=== PATIENT | female | born 1970 | race Caucasian/White ===

== ENCOUNTER 2020-07-24 10:38 | Outpatient (REF) | payer MEDICARE, MEDICAID, SELFPAY ==
[2020-07-24 11:27] LABS: MANUAL DIFF FLAG NO
[2020-07-24 11:29] LABS: Basophils Percent Auto 0.4 % (0-2); Imm Gran Abs Auto 0.03 X10*3/uL (0.00-0.03); Imm Gran Pct Auto 0.4 % (0.0-0.4); Lymphocytes Absolute Auto 2.5 X10*3/uL (1.2-4.9); Lymphocytes Percent Auto 30.5 % (20-40); Mean Corpuscular HGB Conc 31.8 g/dl (31.0-35.0); Mean Corpuscular Hemoglobin 30.2 pg (27.0-33.0); Mean Corpuscular Volume 94.8 fL (80-98); Mean Platelet Volume 9.2 fL (9.4-12.3); Monocytes Absolute Auto 0.6 X10*3/uL (0.1-1.2); Monocytes Percent Auto 6.7 % (2-11); Neutrophils Absolute Auto 5.1 X10*3/uL (2.0-8.3); Platelet Count 280 X10*3/uL (160-400); Red Blood Count 4.64 X10*6/uL (4.20-5.50); White Blood Count 8.2 X10*3/uL (4.8-10.8)
[2020-07-24 11:32] LABS: Glucose Urine UA NEG (NEG); Leukocyte Esterase Urine 1+ (NEG); Nitrite Urine NEG (NEG); PH 8.5 (5.0-8.0); Specific Gravity - Urine 1.015 (1.005-1.025); Urine Blood NEG (NEG); Urine Ketones NEG (NEG); Urine Protein NEG (NEG-TRACE)
[2020-07-24 11:38] LABS: Estimated Average Glucose 117 mg/dL; Hemoglobin A1c % 5.7 %
[2020-07-24 11:39] LABS: Appearance Urine HAZY; Color Urine YELLOW
[2020-07-24 12:10] LABS: Alanine Aminotransferase 15 U/L (0-31); Albumin Level 4.2 g/dL (3.5-5.0); Alkaline Phosphatase 162 U/L (39-117); Anion Gap 15 (12-20); Aspartate Amino Transferase 17 U/L (5-31); Bilirubin Total 0.3 mg/dL (0.0-1.0); Blood Urea Nitrogen 14 mg/dL (9-16); Calcium 9.2 mg/dL (8.4-10.2); Carbon Dioxide 30 mmol/L (22-29); Chloride 102 mmol/L (96-108); Cholesterol 163 mg/dL; Estimated Glomerular Filt Rate > 60; Glucose Random 110 mg/dL (60-115); HDL Cholesterol 50 mg/dL; LDL Cholesterol Calculated 92 mg/dl; Potassium 4.3 mmol/L (3.3-5.1); Sodium 143 mmol/L (135-145); Total Protein 7.7 g/dL (6.5-8.0); Triglycerides 109 mg/dL
[2020-07-24 12:12] LABS: Mucus Urine 1+ /LPF; RBC Urine 0-2 /HPF (0); Squamous Epithelial Cell Urine 2+ /LPF
[2020-07-24 12:13] LABS: Calcium Oxalate Crystals Urine TRACE /LPF
[2020-07-24 12:17] LABS: Free T4 (Free Thyroxine) 0.93 ng/dL (0.71-1.85); Thyroid Stimulating Hormone 1.11 uIU/mL (0.32-4.0); Vitamin D 25-OH Total 35.3 ng/mL (>30)
[2020-07-24 12:33] LABS: Folate > 20.0 ng/mL (> or = 4.0); Vitamin B12 806 pg/mL (200-900)
[2020-07-24 12:39] LABS: Carbamazepine Tegretol 9.7 mcg/mL (5.0-12.0)
== END 2020-07-24 10:39 | disposition home or self-care (01) ==
LOC: HO.LAB 10:38
PROVIDERS: PCP Internal Medicine; Visit Provider Internal Medicine
DX: E78.00 Pure hypercholesterolemia, unspecified (principal); R73.02 Impaired glucose tolerance (oral); I10 Essential (primary) hypertension; Z87.898 Personal history of other specified conditions
CPT/HCPCS: 36415; 80053; 80061; 80156; 81001; 82306; 82607; 82746; 83036; 84439; 84443; 85025

== ENCOUNTER 2022-12-08 14:58 | Outpatient (AMB) | payer MEDICARE, MEDICAID, SELFPAY ==
[2022-12-08 15:14] VITALS: BP 124/70; PULSE 74; O2SAT 98; BMI 35.9
--- NOTE | 2022-12-08 15:14 | A.OFFVIS_ITS ---
Intake Vital Signs 12/08/22 15:14 Height 5 ft 5 in Weight 216 lb BMI 35.9 BP 124/70 Blood Pressure Location Lt brachial Position Sitting Pulse 74 Pulse Source Pulse Oximeter Pulse Oximetry (%) 98 Oxygen Delivery Method Room Air Intake Visit Reasons: SAWV G0439 Allergies No Known Allergies Allergy (Verified 12/08/22 15:14) Medication List - Last Reconciled 12/08/22 by Jessee Escobar MD acetaminophen (Tylenol) 650 mg (2 x 325 mg) PO Q4H PRN atorvastatin 60 mg (1.5 x 40 mg) PO BEDTIME 90 days carbamazepine 400 mg PO BID clonazepam 1 mg PO QAM diazepam 2 mg PO DAILY PRN docusate sodium (Colace) 100 mg PO BID hydrochlorothiazide 25 mg PO DAILY levetiracetam 2,000 mg PO BID loratadine (Claritin) 10 mg PO DAILY miconazole nitrate 2% (Zeasorb AF) 1 appl topical DAILY multivitamin 1 tab PO DAILY multivitamin with folic acid 400 mcg (Tab-A-Elieser) 1 tab PO QAM norethindrone (contraceptive) 0.35 mg PO QAM omega-3 fatty acids-fish oil 340-1,000 mg 1 cap PO BID omeprazole 20 mg PO QAM propranolol ER mg PO TID risperidone 2 mg PO DAILY risperidone 1 mg PO BID silver sulfadiazine 1% (Silvadene) 1 appl topical DAILY venlafaxine ER 75 mg PO DAILY venlafaxine ER (Effexor XR) 150 mg PO QAM HPI SAWV G0439 HPI Details 52-year-old obese female with a history of developmental delay, depression psychosis with sign and snf. Review of the notes in July had a fall patient has tripped sustaining head trauma no loss of consciousness had a large left occipital hematoma. Patient has a history of hypertension, hypercholesterolemia GERD and impaired glucose tolerance. Patient has a history of seizures also. [facility] Medical History (Updated 12/08/22 @ 15:54 by Jessee Escobar MD) Depression GERD (gastroesophageal reflux disease) History of seizures Hypercholesterolemia Hypertension Impaired glucose tolerance Mental and behavioral problem Obesity (BMI 30-39.9) Schizophrenia Surgical History History of tooth extraction Family History Father Medical history unknown Mother Cancer Sister Diabetes Brother Diabetes Social History Alcohol intake: never Patient Tobacco Use Status: Never used Tobacco Questionnaire Medicare Wellness Checkup What is your age?: 65-69 (18-64) What gender do you identify with?: female During the past 4 weeks, how much have you been bothered by emotional problems such as feeling anxious, depressed, irritable, sad or downhearted, and blue?: not at all During the past 4 weeks, has your physical & emotional health limited your social activities with family, friends, neighbors, or groups?: not at all During the past 4 weeks, how much bodily pain have you generally had?: no pain During the past 4 weeks, was someone available to help you if you needed & wanted help?: yes, as much as I wanted During the past 4 weeks, what was the hardest physical activity you could do for at least 2 minutes?: very light (no physical activity) Can you get to places out of walking distance without help? (For eg., can you travel alone on buses, taxis or drive your car?): Yes Can you go shopping for groceries or clothes without someone's help?: No Can you prepare your own meals?: No Can you do your housework without help?: No Because of any health problems, do you need the help of another person with your personal care needs such as eating, bathing, dressing or getting around the house?: Yes Can you handle your own money without help?: No During the past 4 weeks, how would you rate your health in general?: good During the past 4 weeks how have things been going for you?: pretty well Are you having difficulties driving your car?: not applicable, I don't use a car Do you always fasten your seat belt when you are in a car?: yes, usually During past 4 weeks, have you been bothered by the following: never: Falling or dizzy when standing up, Sexual problems?, Trouble eating well?, Teeth or denture problems?, Problems using the telephone? and Tiredness or fatigue? Have you fallen 2 or more times in the past year?: Yes Are you afraid of falling?: No Are you a smoker?: no During the past 4 weeks, how many drinks of wine, beer, or other alcoholic beverages did you have?: no alcohol at all Do you exercise for about 20 minutes 3 or more times a week?: no, I usually do not exercise this much Have you been given information to help with the following?: yes: Hazards in your house that might hurt you? and yes: Keeping track of your medications? How often do you have trouble taking medicines the way you have been told to take them?: I always take medicine as prescribed What is your race?: White PHQ-9 Over the last 2 weeks, how often have you been bothered by any of the following problems? 1. Little interest or pleasure in doing things: more than half the days 2. Feeling down, depressed, or hopeless: not at all 3. Trouble falling or staying asleep, or sleeping too much: not at all 4. Feeling tired or having little energy: not at all 5. Poor appetite or overeating: not at all 6. Feeling bad about yourself - or that you are a failure or have let yourself or your family down: not at all 7. Trouble concentrating on things, such as reading the newspaper or watching television: not at all 8. Moving or speaking so slowly that other people could have noticed. Or the opposite - being so fidgety or restless that you have been moving around a lot more than usual: not at all 9. Thoughts that you would be better off or of hurting yourself in some way: not at all Total score: 2 Depression Screening Interpretation: Negative Source: Developed by Drs. Victor Manuel Helton, Latoya Ryan, Skip Awad and colleagues, with an educational simon from [employer]. Review of Systems Const Denies poor appetite and Denies weakness Eyes Denies no additional complaints ENT Reports Normal hearing present, Denies dizziness, Denies nasal congestion, Denies tinnitus and Denies sore throat Card Denies chest pain, Denies syncope, Denies rapid heart rate and Denies dyspnea Resp Denies cough and Denies dyspnea GI Denies change in stool character, Reports constipation, Denies diarrhea, Denies nausea and Denies vomiting Denies urinary frequency, Denies difficulty voiding and Denies dysuria Neuro Reports Normal hearing present, Denies confusion, Denies dizziness, Denies syncope and Denies weakness Psych Denies confusion Physical Exam Vital Signs: Last Vital Signs Pulse 74 12/08/22 15:14 BP 124/70 12/08/22 15:14 Pulse Ox 98 12/08/22 15:14 Oxygen Delivery Method Room Air 12/08/22 15:14 BMI result Body Mass Index 35.9 Const General: No confusion Orientation/consciousness: No confusion HEENT Head: Yes normocephalic Ears: external ears normal and TM's normal bilaterally Face and sinus: Yes normal facial exam Mouth: moist mucous membranes Throat: Yes tonsils normal Eyes Conjunctivae: conjunctivae normal Pupils: Equal, round and reactive pupils present and Pupil accommodation reflex normal Direct Ophthalmoscopy: normal light reflex Neck Neck: No lymphadenopathy Thyroid: Thyroid normal Chest Chest palpation & inspection: normal inspection of the chest Resp Effort & Inspection: normal respiratory effort and no audible wheezes Auscultation: clear to auscultation bilaterally, no crackles, no wheezes and lung sounds not diminished Cardio Rate: regular rate Rhythm: regular rhythm Peripheral pulses: radial pulses present and dorsalis pedis present GI Palpation (GI): no masses Auscultation: normal bowel sounds and normoactive bowel sounds Rectal Exam - Female: deferred Skin General skin exam: no rashes or lesions noted Rashes: no rashes Neuro General: No confusion Cranial nerves: Yes Equal, round and reactive pupils present and Yes Normal hearing present Cognition (Neuro): normal cognition Gait exam (Neuro): Normal gait present Motor exam (neuro): 5/5 motor strength present throughout Deep tendon reflexes (DTR's): Right brachioradialis reflex intensity grade: 2+, Left brachioradialis reflex intensity grade: 2+, Right patellar reflex intensity grade: 2+ and Left patellar reflex intensity grade: 2+ Extrem General: No edema Assessment & Plan Assessment & Plan (1) Medicare annual wellness visit, subsequent: Code(s): Z00.00 - Encounter for general adult medical examination without abnormal findings Plan: Discussed about blood work, preventive measures vaccinations discussed about the problem with blood sugar and cholesterol discussed about the weight. (2) History of seizures: Comment: Dr. hammond Code(s): Z87.898 - Personal history of other specified conditions Plan: Continue with follow-up with Neurology and medications (3) Impaired glucose tolerance: Code(s): R73.02 - Impaired glucose tolerance (oral) Plan: Decrease the amount of carbohydrate intake, pasta, bread, rice and potatoes are all sugar and that is aside from all the sweet stuff, remember that fruits are good but they are Sweet also. (4) Schizophrenia: Code(s): F20.9 - Schizophrenia, unspecified Plan: Continue with counseling and therapy (5) GERD (gastroesophageal reflux disease): Code(s): K21.9 - Gastro-esophageal reflux disease without esophagitis Qualifiers: Esophagitis presence: without esophagitis Qualified Code(s): K21.9 - Gastro-esophageal reflux disease without esophagitis Plan: Avoid the foods that causes that usually spicy foods, tomato products, juices, coffee, soda and foods that your sensitive to. After eating do not lie down, allow 3-4 hours before in lie down. And keep the head of bed above 30 degrees to avoid the acid from going up. (6) Obesity (BMI 30-39.9): Code(s): E66.9 - Obesity, unspecified Plan: Diet and exercise (7) Hypercholesterolemia: Code(s): E78.00 - Pure hypercholesterolemia, unspecified Plan: Avoid fried foods, chicken skin, eggs, butter margarine, pastries and meat. Be it pork or beef they have a lot of cholesterol LDL goal of less than 130 and triglyceride of less than 150 patient is advised blood work patient is on atorvastatin 60 mg once a day (8) Hypertension: Code(s): I10 - Essential (primary) hypertension Qualifiers: Hypertension type: essential hypertension Qualified Code(s): I10 - Essential (primary) hypertension Plan: Continue with blood pressure medication. Decrease salt intake and exercise patient is on hydrochlorothiazide 25 mg once a day propranolol 3 times a day (9) Colon cancer screening: Code(s): Z12.11 - Encounter for screening for malignant neoplasm of colon Plan: Coltiffanie requested (10) Breast cancer screening: Code(s): Z12.39 - Encounter for other screening for malignant neoplasm of breast Plan: Reminded about the mammogram Orders: Orders Vitamin B12 and Folate Today R73.02 - Impaired glucose tolerance (oral) Comprehensive Met. Panel Today R73.02 - Impaired glucose tolerance (oral) Hemoglobin A1c Today R73.02 - Impaired glucose tolerance (oral) Lipid Panel Today E78.00 - Pure hypercholesterolemia, unspecified, R73.02 - Impaired glucose tolerance (oral) Free T4 (Free Thyroxine) Today R73.02 - Impaired glucose tolerance (oral) Thyroid Stimulating Hormone Today R73.02 - Impaired glucose tolerance (oral) Vitamin D 25-OH Total Today R73.02 - Impaired glucose tolerance (oral) Complete Blood Count Auto Diff Today R73.02 - Impaired glucose tolerance (oral) Carbamazepine Tegretol Today Z87.898 - Personal history of other specified conditions Referrals Cologuard Test Z12.11 - Encounter for screening for malignant neoplasm of colon Quality Reporting (2019) Depression/Bipolar (159/160/161/177) PHQ-9: Total score: 2 Coding Level of Care Code Medicare Subsequent (G0439) Diagnoses Medicare annual wellness visit, subsequent Z00.00 History of seizures Z87.898 Impaired glucose tolerance R73.02 Schizophrenia F20.9 GERD (gastroesophageal reflux disease) K21.9 Esophagitis presence: without esophagitis Obesity (BMI 30-39.9) E66.9 Hypercholesterolemia E78.00 Hypertension I10 Hypertension type: essential hypertension Colon cancer screening Z12.11 Breast cancer screening Z12.39
== END 2022-12-08 15:57 | disposition home or self-care (01) ==
PROVIDERS: Visit Provider Internal Medicine
DX: Z00.00 Encounter for general adult medical examination without abnormal findings (principal); Z87.898 Personal history of other specified conditions; F20.9 Schizophrenia, unspecified; I10 Essential (primary) hypertension; K21.9 Gastro-esophageal reflux disease without esophagitis; R73.02 Impaired glucose tolerance (oral); E66.9 Obesity, unspecified; E78.00 Pure hypercholesterolemia, unspecified; Z12.11 Encounter for screening for malignant neoplasm of colon; Z12.39 Encounter for other screening for malignant neoplasm of breast
CPT/HCPCS: G0439

== ENCOUNTER 2022-12-12 09:40 | Outpatient (REF) | payer MEDICARE, MEDICAID, SELFPAY ==
[2022-12-12 10:03] LABS: MANUAL DIFF FLAG NO
[2022-12-12 10:32] LABS: Basophils Percent Auto 0.3 % (0-2); Hematocrit 42.6 % (37.0-47.0); Imm Gran Abs Auto 0.03 X10*3/uL (0.00-0.03); Imm Gran Pct Auto 0.3 % (0.0-0.4); Lymphocytes Percent Auto 32.6 % (20-40); Mean Corpuscular HGB Conc 32.9 g/dl (31.0-35.0); Mean Corpuscular Hemoglobin 30.4 pg (27.0-33.0); Mean Corpuscular Volume 92.6 fL (80.0-98.0); Mean Platelet Volume 9.2 fL (9.4-12.3); Monocytes Absolute Auto 0.6 X10*3/uL (0.1-1.2); Monocytes Percent Auto 6.6 % (2-11); Neutrophils Absolute Auto 5.5 x10*3/uL (2.0-8.3); Neutrophils Percent Auto 60.2 % (45-73); Platelet Count 292 X10*3/uL (160-400); White Blood Count 9.1 X10*3/uL (4.8-10.8)
[2022-12-12 11:25] LABS: Estimated Average Glucose 137 mg/dL; Hemoglobin A1c % 6.4 %
[2022-12-12 11:43] LABS: Carbamazepine Tegretol 14.8 mcg/mL (5.0-12.0)
[2022-12-12 11:49] LABS: Alanine Aminotransferase 23 U/L (0-31); Albumin Level 3.9 g/dL (3.5-5.0); Alkaline Phosphatase 152 U/L (39-117); Anion Gap 16 (12-20); Aspartate Amino Transferase 20 U/L (5-31); Bilirubin Total 0.3 mg/dL (0.0-1.0); Blood Urea Nitrogen 12 mg/dL (9-16); Calcium 9.7 mg/dL (8.4-10.2); Carbon Dioxide 27 mmol/L (22-29); Chloride 103 mmol/L (96-108); Cholesterol 160 mg/dL; Estimated Glomerular Filt Rate > 60; Glucose Random 164 mg/dL (60-115); HDL Cholesterol 46 mg/dL; LDL Cholesterol Calculated 90 mg/dl; Potassium 3.5 mmol/L (3.3-5.1); Sodium 142 mmol/L (135-145); Total Protein 7.8 g/dL (6.5-8.0); Triglycerides 124 mg/dL
[2022-12-12 11:55] LABS: Free T4 (Free Thyroxine) 0.83 ng/dL (0.71-1.85); Thyroid Stimulating Hormone 1.65 uIU/mL (0.32-4.0); Vitamin D 25-OH Total 38.3 ng/mL (>30)
[2022-12-12 12:11] LABS: Vitamin B12 863 pg/mL (200-900)
== END 2022-12-12 09:41 | disposition home or self-care (01) ==
LOC: HO.LAB 09:40
PROVIDERS: PCP Internal Medicine; Visit Provider Internal Medicine
DX: E78.00 Pure hypercholesterolemia, unspecified (principal); R73.02 Impaired glucose tolerance (oral); Z87.898 Personal history of other specified conditions; E55.9 Vitamin D deficiency, unspecified
CPT/HCPCS: 36415; 80053; 80061; 80156; 82306; 82607; 82746; 83036; 84439; 84443; 85025

== ENCOUNTER 2024-01-15 17:22 | Outpatient (AMB) | payer MEDICARE, MEDICAID, SELFPAY ==
--- NOTE | 2024-01-15 17:44 | A.OFFVIS_ITS ---
Intake Vital Signs 01/15/24 17:45 Height 5 ft 5 in Weight 209 lb 2 oz BMI 34.8 BP 92/68 Blood Pressure Location Lt brachial Position Sitting Pulse 63 Pulse Source Pulse Oximeter Pulse Oximetry (%) 97 Oxygen Delivery Method Room Air Intake Visit Reasons: AWV Intake Note: Patient is here for an Annual Wellness Visit. English Faculty Member Required: No Accompanied by: staff Allergies No Known Allergies Allergy (Verified 12/08/22 15:14) HPI AWV HPI Details 53-year-old obese female(noted 7 lb weig ht loss) with schizophrenia impaired glucose tolerance has of seizures GERD hypercholesterolemia hypertension coming in for annual well visit last seen in last year. Patient has declined mammogram and Cologuard testing. Review of the notes 04/19/2023 ER visit for seizures. Review of the notes in 02/17/2023 had an EEG done showing limited results due to patient's removal of electrodes. Abnormal potentially epileptogenic activity left frontotemporal and right frontal regions. Mild to moderate generalized slowing results showing neurology notes seen in January presumably complex partial PFSH Medical History (Updated 01/15/24 @ 18:14 by Jessee Escobar MD) Impaired glucose tolerance Depression Mental and behavioral problem GERD (gastroesophageal reflux disease) Obesity (BMI 30-39.9) Schizophrenia History of seizures Hypercholesterolemia Hypertension Surgical History History of tooth extraction Family History Father Medical history unknown Mother Cancer Sister Diabetes Brother Diabetes Social History Alcohol intake: never Patient Tobacco Use Status: Never used Tobacco Questionnaire Medicare Wellness Checkup What [age] your [age]?: 65-69 What gender do you identify with?: female During the past 4 weeks, how much have you been bothered by emotional problems such as feeling anxious, depressed, irritable, sad or downhearted, and blue?: not at all During the past 4 weeks, has your physical & emotional health limited your social activities with family, friends, neighbors, or groups?: quite a bit During the past 4 weeks, how much bodily pain have you generally had?: no pain During the past 4 weeks, was someone available to help you if you needed & wanted help?: yes, as much as I wanted During the past 4 weeks, what was the hardest physical activity you could do for at least 2 minutes?: moderate Can you get to places out of walking distance without help? (For eg., can you travel alone on buses, taxis or drive your car?): No Can you go shopping for groceries or clothes without someone's help?: No Can you prepare your own meals?: No Can you do your housework without help?: No Because of any health problems, do you need the help of another person with your personal care needs such as eating, bathing, dressing or getting around the house?: Yes Can you handle your own money without help?: No During the past 4 weeks, how would you rate your health in general?: good During the past 4 weeks how have things been going for you?: pretty well Are you having difficulties driving your car?: not applicable, I don't use a car Do you always fasten your seat belt when you are in a car?: yes, usually During past 4 weeks, have you been bothered by the following: never: Sexual problems?, Trouble eating well?, Teeth or denture problems? and Problems using the telephone?, sometimes: Falling or dizzy when standing up and often: Tiredness or fatigue? Have you fallen 2 or more times in the past year?: No Are you afraid of falling?: No Are you a smoker?: no During the past 4 weeks, how many drinks of wine, beer, or other alcoholic beverages did you have?: no alcohol at all Do you exercise for about 20 minutes 3 or more times a week?: no, I usually do not exercise this much Have you been given information to help with the following?: yes: Hazards in your house that might hurt you? and yes: Keeping track of your medications? How often do you have trouble taking medicines the way you have been told to take them?: I always take medicine as prescribed How confident are you that you can control & manage most of your health problems?: not very confident What is your race?: White PHQ-9 Over the last 2 weeks, how often have you been bothered by any of the following problems? 1. Little interest or pleasure in doing things: more than half the days 2. Feeling down, depressed, or hopeless: several days 3. Trouble falling or staying asleep, or sleeping too much: more than half the days 4. Feeling tired or having little energy: more than half the days 5. Poor appetite or overeating: not at all 6. Feeling bad about yourself - or that you are a failure or have let yourself or your family down: not at all 7. Trouble concentrating on things, such as reading the newspaper or watching television: several days 8. Moving or speaking so slowly that other people could have noticed. Or the opposite - being so fidgety or restless that you have been moving around a lot more than usual: several days 9. Thoughts that you would be better off or of hurting yourself in some way: not at all Total score: 9 Depression Screening Interpretation: Positive Depression Screening Done: Yes Source: Developed by Drs. Victor Manuel Helton, Latoya Ryan, Skip Awad and colleagues, with an educational simon from [employer]. Review of Systems Const Denies poor appetite and Denies weakness Eyes Denies no additional complaints ENT Denies dizziness, Denies nasal congestion, Denies tinnitus and Denies sore throat Card Denies chest pain, Denies syncope, Denies rapid heart rate and Denies dyspnea Resp Denies cough and Denies dyspnea GI Denies change in stool character, Reports constipation, Denies diarrhea, Denies nausea and Denies vomiting Denies urinary frequency, Denies difficulty voiding and Denies dysuria Neuro Reports confusion, Denies dizziness, Denies syncope and Denies weakness Psych Reports confusion Physical Exam Vital Signs: Last Vital Signs Pulse 63 01/15/24 17:45 BP 92/68 01/15/24 17:45 Pulse Ox 97 01/15/24 17:45 Oxygen Delivery Method Room Air 01/15/24 17:45 BMI result Body Mass Index 34.8 Const General: alert, awake and confusion Orientation/consciousness: confusion HEENT Other: Patient has declined ear exam Head: Yes normocephalic Ears: external ears normal Face and sinus: Yes normal facial exam Mouth: moist mucous membranes Throat: Yes tonsils normal Eyes Other: Pupils equal reactive to light Conjunctivae: conjunctivae normal Pupils: Pupil accommodation reflex normal Direct Ophthalmoscopy: normal light reflex Neck Neck: No lymphadenopathy Thyroid: Thyroid normal Chest Chest palpation & inspection: normal inspection of the chest Resp Effort & Inspection: normal respiratory effort and no audible wheezes Auscultation: clear to auscultation bilaterally, no crackles, no wheezes and lung sounds not diminished Cardio Rate: regular rate Rhythm: regular rhythm Peripheral pulses: radial pulses present and dorsalis pedis present GI Other: Declined exam Palpation (GI): no masses Rectal Exam - Female: deferred Skin General skin exam: no rashes or lesions noted Rashes: no rashes Neuro General: confusion Cranial nerves: Yes Midline tongue present Gait exam (Neuro): Normal gait present Motor exam (neuro): 5/5 motor strength present throughout Extrem General: No edema Psych Other: Patient declined exam Immunizations pneumoc 20-therese conj-dip cr(PF) 0.5 mL IM syringe Performing Provider: Jessee Escobar MD [facility] [facility] [place] [facility] Administered by: SHAYLEE Anderson on 01/15/24 18:37 2 Dose Route Admin Location Dispensed Lot Number Expiration Date NDC Ammonium Nitrate Crystallizer 0.5 mL IM Right Deltoid 0.5 mL [id number] 11/29/24 [id number] [employer] VIS Given Date VIS Provided VIS Publication Date 01/15/24 Single Vaccine 21 Eligibility Eligibility Date Funding Source Not [facility] Eligible 01/15/24 Private Assessment & Plan Assessment & Plan (1) Medicare annual wellness visit, subsequent: Code(s): Z00.00 - Encounter for general adult medical examination without abnormal findings Plan: Patient is advised to eat healthy, keep well hydrated, keep active and have adequate sleep. (2) Type 2 diabetes mellitus with hyperglycemia: Code(s): E11.65 - Type 2 diabetes mellitus with hyperglycemia Qualifiers: Diabetes mellitus extermination inspector insulin use: without extermination inspector use Qualified Code(s): E11.65 - Type 2 diabetes mellitus with hyperglycemia Plan: Decrease the amount of carbohydrate intake, pasta, bread, rice and potatoes are all sugar and that is aside from all the sweet stuff, remember that fruits are good but they are Sweet also. Hemoglobin A1c goal of less than 6.5. Patient is on glipizide 2.5 mg once a day (3) Schizophrenia: Code(s): F20.9 - Schizophrenia, unspecified Plan: Continue with present medication and counseling and therapy. (4) Breast cancer screening: Code(s): Z12.39 - Encounter for other screening for malignant neoplasm of breast Plan: Reminded about mammogram (5) Colon cancer screening: Code(s): Z12.11 - Encounter for screening for malignant neoplasm of colon Plan: Reminded about colon cancer screening. (6) History of seizures: Comment: Dr. hammond Code(s): Z87.898 - Personal history of other specified conditions Plan: Continue to follow-up with Neurology has been placed on Keppra 2000 mg twice a day diazepam as needed clonazepam as needed carbamazepine 400 mg twice a day (7) Depression: Comment: [place] Code(s): F32.9 - Major depressive disorder, single episode, unspecified Qualifiers: Depression Type: major depressive disorder Major depression recurrence: recurrent Active/Remission status: currently active Major depression episode severity: moderate Qualified Code(s): F33.1 - Major depressive disorder, recurrent, moderate Plan: Continue with counseling and therapy (8) GERD (gastroesophageal reflux disease): Code(s): K21.9 - Gastro-esophageal reflux disease without esophagitis Qualifiers: Esophagitis presence: without esophagitis Qualified Code(s): K21.9 - Gastro-esophageal reflux disease without esophagitis Plan: Avoid the foods that causes that usually spicy foods, tomato products, juices, coffee, soda and foods that your sensitive to. After eating do not lie down, allow 3-4 hours before in lie down. And keep the head of bed above 30 degrees to avoid the acid from going up. (9) Obesity (BMI 30-39.9): Code(s): E66.9 - Obesity, unspecified Plan: Diet and exercise (10) Hypercholesterolemia: Code(s): E78.00 - Pure hypercholesterolemia, unspecified Plan: Avoid fried foods, chicken skin, eggs, butter margarine, pastries and meat. Be it pork or beef they have a lot of cholesterol LDL goal of less than 100 and triglyceride of less than 150 on atorvastatin 60 mg at bedtime. (11) Hypertension: Code(s): I10 - Essential (primary) hypertension Qualifiers: Hypertension type: essential hypertension Qualified Code(s): I10 - Essential (primary) hypertension Plan: Continue with blood pressure medication. Decrease salt intake and exercise on hydrochlorothiazide propranolol. Quality Reporting (2019) Depression/Bipolar (159/160/161/177) PHQ-9: Total score: 9 Coding Level of Care Code Medicare Subsequent (G0439) Diagnoses Medicare annual wellness visit, subsequent Z00.00 Type 2 diabetes mellitus with hyperglycemia, without long-term current use of insulin E11.65 Diabetes mellitus extermination inspector insulin use: without jail use Schizophrenia F20.9 Breast cancer screening Z12.39 Colon cancer screening Z12.11 History of seizures Z87.898 Moderate episode of recurrent major depressive disorder F33.1 Depression Type: major depressive disorder Major depression recurrence: recurrent Active/Remission status: currently active Major depression episode severity: moderate Gastroesophageal reflux disease without esophagitis K21.9 Esophagitis presence: without esophagitis Obesity (BMI 30-39.9) E66.9 Hypercholesterolemia E78.00 Essential hypertension I10 Hypertension type: essential hypertension
[2024-01-15 17:45] VITALS: BP 92/68; PULSE 63; O2SAT 97; BMI 34.8
== END 2024-01-15 18:39 | disposition home or self-care (01) ==
PROVIDERS: PCP Internal Medicine; Visit Provider Internal Medicine
DX: Z00.00 Encounter for general adult medical examination without abnormal findings (principal); E11.65 Type 2 diabetes mellitus with hyperglycemia; F20.9 Schizophrenia, unspecified; F33.1 Major depressive disorder, recurrent, moderate; Z12.39 Encounter for other screening for malignant neoplasm of breast; Z12.11 Encounter for screening for malignant neoplasm of colon; Z87.898 Personal history of other specified conditions; K21.9 Gastro-esophageal reflux disease without esophagitis; E66.9 Obesity, unspecified; E78.00 Pure hypercholesterolemia, unspecified; I10 Essential (primary) hypertension; Z23 Encounter for immunization

== ENCOUNTER → 2024-01-15 17:22 | Outpatient (BNVA) | payer MEDICARE, MEDICAID, SELFPAY | PROVIDERS: PCP Internal Medicine; Visit Provider Internal Medicine | DX: Z00.01 Encounter for general adult medical examination with abnormal findings (principal); Z23 Encounter for immunization; E11.65 Type 2 diabetes mellitus with hyperglycemia; F20.9 Schizophrenia, unspecified; F33.1 Major depressive disorder, recurrent, moderate; K21.9 Gastro-esophageal reflux disease without esophagitis; E66.9 Obesity, unspecified; Z68.34 Body mass index [BMI] 34.0-34.9, adult; E78.00 Pure hypercholesterolemia, unspecified; I10 Essential (primary) hypertension; Z71.3 Dietary counseling and surveillance; Z87.898 Personal history of other specified conditions | CPT/HCPCS: 90471; 90677; 96127 ==

== ENCOUNTER 2024-08-19 17:02 | Outpatient (AMB) | payer MEDICARE, MEDICAID, SELFPAY ==
--- NOTE | 2024-08-19 17:02 | A.OFFPC_ITS ---
Vital Signs 08/19/24 17:03 Height 5 ft 5 in Weight 205 lb BMI 34.1 BP 94/60 Blood Pressure Location Lt brachial Position Sitting Pulse 69 Pulse Source Pulse Oximeter Temp 97.1 F Temp Source Temporal Artery Scan Pulse Oximetry (%) 96 Intake Visit Reasons: breast Check up Fan Installer Required: No Accompanied by: Program Allergies No Known Allergies Allergy (Verified 08/19/24 17:07) Medication List - Last Reconciled 08/19/24 by Jessee Escobar MD acetaminophen (Tylenol) 650 mg (2 x 325 mg) PO Q4H PRN atorvastatin 60 mg (1.5 x 40 mg) PO BEDTIME 90 days carbamazepine 400 mg PO BID clonazepam 1 mg PO QAM clotrimazole 1% 1 appl topical BID 4 weeks clotrimazole 1% 1 appl topical BID 4 weeks diazepam 2 mg PO DAILY PRN docusate sodium (Colace) 100 mg PO BID glipizide ER 2.5 mg PO DAILY hydrochlorothiazide 25 mg PO DAILY levetiracetam 2,000 mg PO BID loratadine (Claritin) 10 mg PO DAILY miconazole nitrate 2% (Zeasorb AF) 1 appl topical DAILY multivitamin 1 tab PO DAILY multivitamin with folic acid 400 mcg (Tab-A-Elieser) 1 tab PO QAM norethindrone (contraceptive) 0.35 mg PO QAM nystatin 1 appl topical BID omega-3 fatty acids-fish oil 340-1,000 mg 1 cap PO BID omeprazole 20 mg PO QAM polyethylene glycol 3350 (Miralax) 17 grams PO Q2D propranolol ER mg PO TID risperidone 2 mg PO DAILY risperidone 1 mg PO BID silver sulfadiazine 1% (Silvadene) 1 appl topical DAILY venlafaxine ER 75 mg PO DAILY venlafaxine ER (Effexor XR) 150 mg PO QAM Tobacco use date assessed: 08/19/24 [facility] Medical History (Updated 01/15/24 @ 18:14 by Jessee Escobar MD) Impaired glucose tolerance Depression Mental and behavioral problem GERD (gastroesophageal reflux disease) Obesity (BMI 30-39.9) Schizophrenia History of seizures Hypercholesterolemia Hypertension Surgical History History of tooth extraction Family History Father Medical history unknown Mother Cancer Sister Diabetes Brother Diabetes Social History Alcohol intake: never Patient Tobacco Use Status: Never used Tobacco Questionnaire CAIT-7 AMB Questionnaire CAIT-7 Date CAIT - 7 assessed: 12/03/21 Source: Developed by Drs. Victor Manuel Helton, Latoya Ryan, Skip Awad and colleagues, with an educational simon from [employer]. Physical exam (Primary Care) Vital Signs: Last Vital Signs Temp 97.1 F 08/19/24 17:03 Pulse 69 08/19/24 17:03 BP 94/60 08/19/24 17:03 Pulse Ox 96 08/19/24 17:03 BMI result Body Mass Index 34.1 Tobacco/Smoking Status: Tobacco use Status Tobacco use date assessed 08/19/24 08/19/24 17:08 Patient Tobacco Use Status Never used Tobacco 08/19/24 17:08 Const General: alert; No acute distress Eyes Conjunctivae: conjunctivae normal Resp Auscultation: clear to auscultation bilaterally Cardio Rate: regular rate Rhythm: regular rhythm GI Inspection: Yes normal to inspection Extrem General: Yes normal to inspection and No edema Coding Level of Care Code Est Pt Level 4 (72952) Complex EM visit Add On G2211 Diagnoses Type 2 diabetes mellitus with hyperglycemia, without long-term current use of insulin E11.65 Diabetes mellitus long term acute care registered nurse insulin use: without long term acute care registered nurse use Colon cancer screening Z12.11 Breast cancer screening Z12.39 Gastroesophageal reflux disease without esophagitis K21.9 Esophagitis presence: without esophagitis Obesity (BMI 30-39.9) E66.9 Essential hypertension I10 Hypertension type: essential hypertension Hypercholesterolemia E78.00 Candidal intertrigo B37.2 Assessment & Plan Assessment & Plan (1) Type 2 diabetes mellitus with hyperglycemia: Code(s): E11.65 - Type 2 diabetes mellitus with hyperglycemia Category: Medical Qualifiers: Diabetes mellitus custodial insulin use: without long term acute care registered nurse use Qualified Code(s): E11.65 - Type 2 diabetes mellitus with hyperglycemia Plan: Decrease the amount of carbohydrate intake, pasta, bread, rice and potatoes are all sugar and that is aside from all the sweet stuff, remember that fruits are good but they are Sweet also. Hemoglobin A1c goal of less than 6.5. Patient on glipizide 2.5 mg once a day (2) Colon cancer screening: Code(s): Z12.11 - Encounter for screening for malignant neoplasm of colon Category: Medical Plan: Patient is reminded about colonoscopy or Cologuard testing (3) Breast cancer screening: Code(s): Z12.39 - Encounter for other screening for malignant neoplasm of breast Category: Medical Plan: Patient is reminded about mammogram (4) GERD (gastroesophageal reflux disease): Code(s): K21.9 - Gastro-esophageal reflux disease without esophagitis Category: Medical Qualifiers: Esophagitis presence: without esophagitis Qualified Code(s): K21.9 - Gastro-esophageal reflux disease without esophagitis Plan: Avoid the foods that causes that usually spicy foods, tomato products, juices, coffee, soda and foods that your sensitive to. After eating do not lie down, allow 3-4 hours before in lie down. And keep the head of bed above 30 degrees to avoid the acid from going up. (5) Obesity (BMI 30-39.9): Code(s): E66.9 - Obesity, unspecified Category: Medical Plan: Diet and exercise (6) Hypertension: Code(s): I10 - Essential (primary) hypertension Category: Medical Qualifiers: Hypertension type: essential hypertension Qualified Code(s): I10 - Essential (primary) hypertension Plan: Continue with blood pressure medication. Decrease salt intake and exercise on hydrochlorothiazide 25 mg once a day propranolol (7) Hypercholesterolemia: Code(s): E78.00 - Pure hypercholesterolemia, unspecified Category: Medical Plan: Avoid fried foods, chicken skin, eggs, butter margarine, pastries and meat. Be it pork or beef they have a lot of cholesterol LDL goal of less than 100 and triglyceride of less than 150 patient is on atorvastatin 60 mg once a day (8) Candidal intertrigo: Code(s): B37.2 - Candidiasis of skin and nail Category: Medical Plan History of Present Illness The patient is a 54-year-old female presenting for follow-up on chronic conditions management and health maintenance screening. She is being treated for essential hypertension, hypercholesterolemia, GERD, impaired glucose tolerance, schizophrenia, and diabetes mellitus. Her hemoglobin A1c recently measured at 6.4%, indicating well-controlled diabetes. The patient is on glipizide for d iabetes management, with a target A1c of less than 6.5%. Despite reminders, she has not yet undergone a scheduled mammogram and has declined colonoscopy, considering Cologuard testing instead. A new rash under the breasts and abdominal fold has been managed with nystatin powder, although its effectiveness is limited when mixed with sweat. Additionally, there has been a noted increase in seizure episodes. Health Maintenance - Mammogram is due for follow-up as discussed; patient receives sedation for this procedure. - Colonoscopy declined, but the patient has considered Cologuard testing. - Blood work in 2022 indicated normal findings, including liver function and thyroid levels. - Cholesterol management with atorvastatin aiming to keep LDL below 100 mg/dL and triglycerides below 150 mg/dL. Social History Review of Systems - Neurological: Reports increased seizure activity, described as brief dozing out episodes. - Dermatologic: Reports rash under the breast and abdominal fold. Physical Exam - Cardiovascular- Heart auscultation performed. - Respiratory- Lung auscultation normal, instructed deep breath exercises. Results - Labs: Hemoglobin A1c 6.4%, indicating controlled diabetes; blood counts, electrolytes, liver functions, B12, and thyroid normal. LDL cholesterol is 90 mg/dL. Plan We discussed concerns regarding the patient's diabetes management, emphasizing maintaining her A1c target through proper use of glipizide and scheduled blood work. The rash's management included transitioning to an antifungal cream, and health maintenance reminders for her mammogram were provided. We acknowledged her decline for colonoscopy while considering alternative testing. The patient's history of seizures was addressed with a recommendation to consult neurology for optimal management. Patient was informed and verbally consented to the use of an ambient scribe for clinic note documentation during this visit. Discussion Notes During this visit, I reviewed the patient's current diagnoses and management plans. We discussed the risks and benefits of continuing her current medications, including glipizide and atorvastatin, while aiming to meet her LDL cholesterol and A1c targets. I provided education regarding the alternatives for colon screening and emphasized the importance of completing her mammogram. For her dermatological condition, I advised transitioning to an antifungal cream due to moisture issues exacerbated by current treatment. Her seizure activity was noted for further neurologic evaluation. Lastly, follow-up blood work was scheduled, along with reminders for ongoing screenings. Patient Instructions - Take glipizide daily to maintain A1c target. - Use prescribed antifungal cream for skin rash. - Schedule and complete a mammogram. - Consider Cologuard if unwilling to do colonoscopy. - Follow up with neurology for seizure activity. - Return for blood work as requested. - Keep hydrated and note any rash improvement or worsening. Orders: Orders MM tomosynthesis screening BI Today Z12.31 - Encounter for screening mammogram for malignant neoplasm of breast, Z12.39 - Encounter for other screening for malignant neoplasm of breast Medications: New ketoconazole 2% under the breast and abdominal fold 1 appl topical BID 60 grams 1RF B37.2 - Candidiasis of skin and nail Changed From miconazole nitrate 2% (Zeasorb AF) 1 appl topical DAILY 71 grams 2RF B37.2 - Candidiasis of skin and nail To miconazole nitrate 2% (Zeasorb AF) under the breast and abdominal fold after antifungal cream 1 appl topical BID 71 grams 2RF B37.2 - Candidiasis of skin and nail Refilled glipizide ER 2.5 mg PO DAILY 30 tabs 0RF E11.65 - Type 2 diabetes mellitus with hyperglycemia Discontinued nystatin under the breast Discontinued Reason: Doctor's Order 1 appl topical BID 30 grams 0RF
[2024-08-19 17:03] VITALS: BP 94/60; PULSE 69; TEMP 36.2; O2SAT 96; BMI 34.1
== END 2024-08-19 17:54 | disposition home or self-care (01) ==
LOC: HO.HMCH 17:02
PROVIDERS: PCP Internal Medicine; Visit Provider Internal Medicine
DX: E11.65 Type 2 diabetes mellitus with hyperglycemia (principal); E66.9 Obesity, unspecified; Z68.34 Body mass index [BMI] 34.0-34.9, adult; K21.9 Gastro-esophageal reflux disease without esophagitis; Z12.11 Encounter for screening for malignant neoplasm of colon; Z12.39 Encounter for other screening for malignant neoplasm of breast; I10 Essential (primary) hypertension; E78.00 Pure hypercholesterolemia, unspecified; B37.2 Candidiasis of skin and nail

== ENCOUNTER → 2024-08-19 17:02 | Outpatient (BNVA) | payer MEDICARE, MEDICAID, SELFPAY | PROVIDERS: PCP Internal Medicine; Visit Provider Internal Medicine | DX: E11.65 Type 2 diabetes mellitus with hyperglycemia (principal); K21.9 Gastro-esophageal reflux disease without esophagitis; E66.9 Obesity, unspecified; E78.00 Pure hypercholesterolemia, unspecified; I10 Essential (primary) hypertension; B37.2 Candidiasis of skin and nail | CPT/HCPCS: 99212 ==

== ENCOUNTER 2024-10-07 16:10 | Outpatient (REF) | payer MEDICARE, MEDICAID, SELFPAY | END 2024-10-07 16:11 | disposition home or self-care (01) | LOC: HO.MAMMO 16:10 | PROVIDERS: PCP Internal Medicine; Visit Provider Internal Medicine | DX: Z13.89 Encounter for screening for other disorder (principal) ==

== ENCOUNTER 2025-01-24 15:54 | Outpatient (AMB) | payer MEDICARE, MEDICAID, SELFPAY ==
[2025-01-24 16:07] VITALS: BP 122/80; PULSE 94; TEMP 36.1; O2SAT 95; BMI 33.6
--- NOTE | 2025-01-24 16:07 | AM.OFFVISMDC ---
Intake Vital Signs 01/24/25 16:07 Height 5 ft 5 in Weight 201 lb 11.567 oz BMI 33.6 BP 122/80 Blood Pressure Location Rt brachial Position Sitting Pulse 94 Pulse Source Pulse Oximeter Temp 97.0 F Temp Source Temporal Artery Scan Pulse Oximetry (%) 95 Oxygen Delivery Method Room Air Intake Visit Reasons: SWV Allergies No Known Allergies Allergy (Verified 01/24/25 16:07) HPI SWV HPI Details [place] of care patient is being seen by Dr. Maddox the last note I received was in 2022 [facility] Medical History (Updated 01/24/25 @ 16:49 by Jessee Escobar MD) Impaired glucose tolerance Depression Mental and behavioral problem GERD (gastroesophageal reflux disease) Obesity (BMI 30-39.9) Schizophrenia History of seizures Hypercholesterolemia Hypertension Surgical History History of tooth extraction Family History Father Medical history unknown Mother Cancer Sister Diabetes Brother Diabetes Social History Alcohol intake: never Patient Tobacco Use Status: Never used Tobacco Questionnaire Medicare Wellness Checkup What gender do you identify with?: female During the past 4 weeks, how much have you been bothered by emotional problems such as feeling anxious, depressed, irritable, sad or downhearted, and blue?: moderately During the past 4 weeks, has your physical & emotional health limited your social activities with family, friends, neighbors, or groups?: quite a bit During the past 4 weeks, how much bodily pain have you generally had?: no pain During the past 4 weeks, was someone available to help you if you needed & wanted help?: yes, as much as I wanted During the past 4 weeks, what was the hardest physical activity you could do for at least 2 minutes?: moderate Can you get to places out of walking distance without help? (For eg., can you travel alone on buses, taxis or drive your car?): No Can you go shopping for groceries or clothes without someone's help?: No Can you prepare your own meals?: No Can you do your housework without help?: No Because of any health problems, do you need the help of another person with your personal care needs such as eating, bathing, dressing or getting around the house?: Yes Can you handle your own money without help?: No During the past 4 weeks, how would you rate your health in general?: very good During the past 4 weeks how have things been going for you?: pretty well Are you having difficulties driving your car?: not applicable, I don't use a car Do you always fasten your seat belt when you are in a car?: yes, usually During past 4 weeks, have you been bothered by the following: never: Sexual problems?, Trouble eating well?, Teeth or denture problems? and Problems using the telephone?, seldom: Tiredness or fatigue? and sometimes: Falling or dizzy when standing up Have you fallen 2 or more times in the past year?: No Are you afraid of falling?: No Are you a smoker?: no During the past 4 weeks, how many drinks of wine, beer, or other alcoholic beverages did you have?: no alcohol at all Do you exercise for about 20 minutes 3 or more times a week?: no, I usually do not exercise this much Have you been given information to help with the following?: yes: Hazards in your house that might hurt you? and no: Keeping track of your medications? How often do you have trouble taking medicines the way you have been told to take them?: I always take medicine as prescribed How confident are you that you can control & manage most of your health problems?: very confident What is your race?: White PHQ-9 Over the last 2 weeks, how often have you been bothered by any of the following problems? 1. Little interest or pleasure in doing things: more than half the days 2. Feeling down, depressed, or hopeless: more than half the days 3. Trouble falling or staying asleep, or sleeping too much: several days 4. Feeling tired or having little energy: more than half the days 5. Poor appetite or overeating: not at all 6. Feeling bad about yourself - or that you are a failure or have let yourself or your family down: not at all 7. Trouble concentrating on things, such as reading the newspaper or watching television: not at all 8. Moving or speaking so slowly that other people could have noticed. Or the opposite - being so fidgety or restless that you have been moving around a lot more than usual: not at all 9. Thoughts that you would be better off or of hurting yourself in some way: not at all Total score: 7 Depression Screening Interpretation: Positive Depression Screening Done: Yes 19714 - PHQ-9 Billing: Yes Source: Developed by Drs. Victor Manuel Helton, Latoya Ryan, Skip Awad and colleagues, with an educational simon from [employer]. Review of Systems Const Denies poor appetite and Denies weakness Eyes Denies no additional complaints ENT Reports Normal hearing present, Denies dizziness, Denies nasal congestion, Denies tinnitus and Denies sore throat Card Denies chest pain, Denies syncope, Denies rapid heart rate and Denies dyspnea Resp Denies cough and Denies dyspnea GI Denies change in stool character, Reports constipation, Denies diarrhea, Denies nausea and Denies vomiting Denies urinary frequency, Denies difficulty voiding and Denies dysuria Neuro Reports Normal hearing present, Reports confusion, Denies dizziness, Denies syncope and Denies weakness Psych Reports confusion Physical Exam Vital Signs: Last Vital Signs Temp 97.0 F 01/24/25 16:07 Pulse 94 01/24/25 16:07 BP 122/80 01/24/25 16:07 Pulse Ox 95 01/24/25 16:07 Oxygen Delivery Method Room Air 01/24/25 16:07 BMI result Body Mass Index 33.6 Const Other: Patient at 1st rejecting physical exam but was able to examine the pupils equally reactive to light and extraocular muscles equal and full has a whitish coating on the tongue, pink palpebral conjunctivae, anicteric sclerae General: confusion Orientation/consciousness: confusion HEENT Other: Left ear impacted cerumen, right TM intact Head: Yes normocephalic Ears: external ears normal Face and sinus: Yes normal facial exam Mouth: moist mucous membranes Throat: Yes tonsils normal Eyes Conjunctivae: conjunctivae normal Pupils: Equal, round and reactive pupils present and Pupil accommodation reflex normal Direct Ophthalmoscopy: normal light reflex Neck Other: Supple Neck: No lymphadenopathy Thyroid: Thyroid normal Chest Chest palpation & inspection: normal inspection of the chest Resp Effort & Inspection: normal respiratory effort and no audible wheezes Auscultation: clear to auscultation bilaterally, no crackles, no wheezes and lung sounds not diminished Cardio Rate: regular rate Rhythm: regular rhythm Peripheral pulses: radial pulses present and dorsalis pedis present GI Other: Soft and nontender besides that does not want to get examined Palpation (GI): no masses Auscultation: normal bowel sounds and normoactive bowel sounds Rectal Exam - Female: deferred Back/Spine/Pelvis Other: Normal Skin General skin exam: no rashes or lesions noted Rashes: no rashes Neuro Other: Moves all extremities does not follow commands. Left TM impacted cerumen, right TM intact General: confusion Cranial nerves: Yes Equal, round and reactive pupils present and Yes Normal hearing present Cognition (Neuro): normal cognition Gait exam (Neuro): Normal gait present Motor exam (neuro): 5/5 motor strength present throughout Deep tendon reflexes (DTR's): Right brachioradialis reflex intensity grade: 2+, Left brachioradialis reflex intensity grade: 2+, Right patellar reflex intensity grade: 2+ and Left patellar reflex intensity grade: 2+ Extrem General: No edema Results AMB Hemoglobin A1c AMB Hemoglobin A1c 6.3 % Last Edit by Kary Shaw CMA on 01/24/25 16:24 Results Reviewed Results Reviewed: Laboratory Last Values Hgb A1c (Clinic) 6.3 % (4.0-6.0) H 01/24/25 16:18 Assessment & Plan Assessment & Plan (1) Medicare annual wellness visit, subsequent: Code(s): Z00.00 - Encounter for general adult medical examination without abnormal findings Plan: Patient is advised to eat healthy, keep well hydrated, keep active and have adequate sleep. 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 Hemoglobin A1c goal of less than 6.5. Patient is on glipizide 2.5 mg once a day (3) Obesity (BMI 30-39.9): Code(s): E66.9 - Obesity, unspecified Plan: Diet and exercise (4) Hypertension: Code(s): I10 - Essential (primary) hypertension Qualifiers: Hypertension type: essential hypertension Qualified Code(s): I10 - Essential (primary) hypertension Plan: Continue with blood pressure medication. Decrease salt intake and exercise patient takes propranolol hydrochlorothiazide (5) Hypercholesterolemia: Code(s): E78.00 - Pure hypercholesterolemia, unspecified Plan: Avoid fried foods, chicken skin, eggs, butter margarine, pastries and meat. Be it pork or beef they have a lot of cholesterol on atorvastatin 60 mg once a day (6) GERD (gastroesophageal reflux disease): Code(s): K21.9 - Gastro-esophageal reflux disease without esophagitis Qualifiers: Esophagitis presence: without esophagitis Qualified Code(s): K21.9 - Gastro-esophageal reflux disease without esophagitis Plan: Avoid the foods that causes that usually spicy foods, tomato products, juices, coffee, soda and foods that your sensitive to. After eating do not lie down, allow 3-4 hours before in lie down. And keep the head of bed above 30 degrees to avoid the acid from going up. (7) Colon cancer screening: Code(s): Z12.11 - Encounter for screening for malignant neoplasm of colon Plan: Patient is reminded about colonoscopy (8) Breast cancer screening: Code(s): Z12.39 - Encounter for other screening for malignant neoplasm of breast Plan: Patient is reminded about mammogram (9) History of seizures: Comment: Dr. hammond Code(s): Z87.898 - Personal history of other specified conditions Plan: Patient follows up with Neurology on carbamazepine clonazepam diazepam Keppra. (10) Hearing difficulty: Code(s): H91.90 - Unspecified hearing loss, unspecified ear Plan History of Present Illness The patient is a 54-year-old female presenting with an annual wellness visit. She has a history of obesity, hypertension, hypercholesterolemia, and gastroesophageal reflux disease (GERD). Her hypertension and hypercholesterolemia are managed with propranolol, hydrochlorothiazide, and atorvastatin. The patient also has a history of seizures and schizophrenia, for which she follows up with neurology and is on medications including carbamazepine, clonazepam, diazepam, and keppra. She has diabetes mellitus with a current hemoglobin A1c of 6.3, managed with glipizide, diet, and exercise. The goal is to maintain her hemoglobin A1c below 6.5. Preventative care measures include reminders for a colonoscopy and a mammogram, although the patient has declined the colonoscopy. Health Maintenance - Colonoscopy reminder, patient declined - Mammogram reminder Social History Review of Systems Physical Exam General: Cooperative, healthy appearing, comfortable, no acute distress and well developed Orientation: Patient oriented x3 Limitations: No limitations Head: Normal to inspection Ears: Hearing grossly normal bilaterally Nose: Normal external nose present Face and sinus: Normal facial exam Eyes: Appearance normal, both eyes and all related structures Neck: Normal visual inspection and Yes full ROM Respiratory: Normal respiratory effort and able to speak in complete sentences. Clear to auscultation bilaterally Cardiovascular: Regular rate and rhythm. Normal S1 and S2 GI: Normal to inspection. Soft to palpation and nontender Skin: No rashes or lesions noted Neuro: Patient oriented x3 Extremities: Normal to inspection Results - Labs: Hemoglobin A1c is 6.3 Plan Patient was informed and verbally consented to the use of an ambient scribe for clinic note documentation during this visit. 1. Obesity The patient is advised to continue with diet and exercise to manage obesity. 2. Hypertension Hypertension is managed with propranolol and hydrochlorothiazide. 3. Hypercholesterolemia Hypercholesterolemia is managed with atorvastatin 60 mg once daily. 4. Gastroesophageal Reflux Disease (Gerd) The patient is reminded to follow dietary modifications to manage GERD. 5. Seizure Disorder The patient follows up with neurology and is on medications including carbamazepine, clonazepam, diazepam, and keppra. 6. Schizophrenia Schizophrenia management includes regular follow-ups with neurology. 7. Diabetes Mellitus Diabetes is managed with glipizide 2.5 mg once daily, diet, and exercise, with a hemoglobin A1c goal of less than 6.5. Discussion Notes Patient Instructions - Continue with diet and exercise to manage weight and diabetes. - Take medications as prescribed for hypertension, hypercholesterolemia, and diabetes. - Follow up with neurology for seizure disorder and schizophrenia management. - Schedule a mammogram and consider a colonoscopy. 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
== END 2025-01-24 17:36 | disposition home or self-care (01) ==
LOC: HO.HMCH 15:55
PROVIDERS: PCP Internal Medicine; Visit Provider Internal Medicine
DX: Z00.00 Encounter for general adult medical examination without abnormal findings (principal); E11.65 Type 2 diabetes mellitus with hyperglycemia; E66.9 Obesity, unspecified; Z68.33 Body mass index [BMI] 33.0-33.9, adult; I10 Essential (primary) hypertension; E78.00 Pure hypercholesterolemia, unspecified; K21.9 Gastro-esophageal reflux disease without esophagitis; Z12.11 Encounter for screening for malignant neoplasm of colon; Z12.39 Encounter for other screening for malignant neoplasm of breast; Z87.898 Personal history of other specified conditions; H91.90 Unspecified hearing loss, unspecified ear

== ENCOUNTER → 2025-01-24 15:54 | Outpatient (BNVA) | payer MEDICARE, MEDICAID, SELFPAY | PROVIDERS: PCP Internal Medicine; Visit Provider Internal Medicine | DX: Z00.00 Encounter for general adult medical examination without abnormal findings (principal); E66.9 Obesity, unspecified; I10 Essential (primary) hypertension; E78.00 Pure hypercholesterolemia, unspecified; K21.9 Gastro-esophageal reflux disease without esophagitis; F20.9 Schizophrenia, unspecified; E11.65 Type 2 diabetes mellitus with hyperglycemia; Z87.898 Personal history of other specified conditions; Z79.899 Other long term (current) drug therapy; Z68.33 Body mass index [BMI] 33.0-33.9, adult | CPT/HCPCS: 83036; 96127 ==